=== PATIENT | male | born 1970 | race Caucasian/White ===

== ENCOUNTER 2017-08-27 11:00 | Emergency (ER) | payer SELFPAY ==
[~2017-08-27 11:00] MED LIST changes: -ASPI-870; -ATOR40TA24 PO; -LISI-362 PO; -METO25TA23 PO; -METO25TA93 PO; -NICO1PAT86 TD; -PRAV20TA65 PO
[2017-08-27] MEDS ORDERED: ASPIRIN 81 MG CHEW CHEW ONE (11:15)
--- NOTE | 2017-08-27 11:16 | EKG ---
FACILITY: [facility] PATIENT NAME: IRENE AGUILLON : [id number] MR: [id number] V: [id number] EXAM DATE: ORDERING PHYSICIAN: ELLIS ENCARNACION TECHNOLOGIST: JAYNA Lerner Reason : Blood Pressure : / mmHG Vent. Rate : 068 BPM Atrial Rate : 068 BPM P-R Int : 128 ms QRS Dur : 084 ms QT Int : 418 ms P-R-T Axes : 015 075 067 degrees QTc Int : 444 ms Sinus rhythm with premature atrial complexes Inferior infarct , possibly acute ACUTE AR Abnormal ECG When compared with ECG of 17-NOV-2016 19:20, premature atrial complexes are now present ST elevation now present in Inferior leads Confirmed by VIOLA LIN ([id number]) on 08/27/2017 12:21:57 PM Referred By: VEGA Confirmed By:VIOLA LIN
[2017-08-27 11:22] LABS: PLATELET COUNT, AUTOMATED 180 K/uL (150-450)
[2017-08-27] MEDS ORDERED: NITROGLYCERIN 0.4 MG SUBL SL ONE (11:35)
[2017-08-27] MEDS ORDERED: ATORVASTATIN 40 MG TAB PO ONE (11:35)
--- NOTE | 2017-08-27 11:43 | RADIOLOGY IMAGING REPORT ---
FACILITY: [facility] PATIENT NAME: Johnson Sandy : 1970 MR: [id number] V: [id number] EXAM DATE: ORDERING PHYSICIAN: ELLIS ENCARNACION TECHNOLOGIST: Location: [facility] [place] Patient: Johnson Sandy : 1970 Visit/Account:[id number] Date of Sevice: 08/27/2017 CHEST SINGLE AP Indication: Chest pain.. Comparison: November 17, 2016 Findings: Heart size within normal limits. There is no focal infiltrate or lobar consolidation. Mild linear scarring within the left lung bas e. No pneumothorax or pleural effusion. IMPRESSION: 1. No acute cardiopulmonary process. Report Dictated By: Andrea Bates MD at 08/27/2017 11:38 AM Report E-Signed By: Andrea Bates MD at 08/27/2017 11:39 AM WSN:[id number]
[2017-08-27] MEDS ORDERED: CLOPIDOGREL BISULFATE 75MG TAB PO ONE (11:50)
[2017-08-27] MEDS ORDERED: TENECTEPLASE 50 MG KIT IVP ONE (11:50)
[2017-08-27] MEDS ORDERED: HEPARIN (PORC) 5000 UN/ML VIAL IVP ONE (11:50)
[2017-08-27] MEDS ORDERED: STEMI KIT(*) 1 EA ONE (11:56)
--- NOTE | 2017-08-27 12:06 | ER Report ---
History and Physical Time Seen By MD: 11:05 Hx. of Stated Complaint: chest pressure started 1000 today, sweating. pt had PA at 41 yo HPI/ROS CHIEF COMPLAINT: Chest pain HISTORY OF PRESENT ILLNESS: Patient is a 47-year-old male who presents to ED with complaint of chest pain for the past 2-1/2 hours. He states that he had 3 episodes of chest pain last 2-1/2 hours. He states that he was at work. 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 He states that the pain basically just felt like a tightness in his mid chest. He denies any radiation to his jaw or arms. He states that he has had episodes like this for the past 3 weeks while he was at work. He states that normally he was able to get this to go away by standing in front of a fan and cooling down. He did notice that he had very sweaty with these episodes. Patient denies any palpitations. He states that he does have a history of a stent placement 6 years ago which was done in [place], [place]. He has not been following up with cardiology. He states that he did lose his license and this became difficult to follow up or get medications. He has not been on any of his medications for the past 4 years. He states that he takes official tablet intermittently. He does not take any aspirin. He does smoke a pack a day of cigarettes. REVIEW OF SYSTEMS: Constitutional: No fever, no chills. Eyes: No discharge. ENT: No sore throat. Cardiovascular: See history of present illness. Respiratory: See history of present illness. No shortness of breath. Gastrointestinal: No abdominal pain, no vomiting. Genitourinary: No hematuria. Musculoskeletal: No back pain. Skin: No rashes. Neurological: No headache. Allergies: Coded Allergies: Penicillins (Verified Allergy, Unknown, UNKNOWN, 08/27/17) Home Meds Discontinued Scripts Levofloxacin 500 Mg Tab (LEVAQUIN 500 MG TAB) 500 Mg Tablet, 500 MG PO DAILY, # 6 TAB Prov:CRISTINO AMADO 11/17/16 Meclizine Hcl (MECLIZINE HCL) 25 Mg Tablet, 25 MG PO BID for 7 Days, #14 Prov:CRISTINO AMADO 11/17/16 Reviewed Nurses Notes: Yes Old Medical Records Reviewed: Yes Hx Smoking: Yes Smoking Status: Current: Every Day Smoker Hx Substance Use Disorder: No Hx Alcohol Use: Yes (OCC) Constitutional Vital Sign - Last 24 Hours 08/27/17 08/27/17 08/27/17 08/27/17 11:03 11:03 11:15 11:30 Temp 97.9 Pulse 80 78 78 Resp 14 10 6 B/P (MAP) 148/107 148/107 (121) 130/98 (109) 129/94 (106) Pulse Ox 90 92 91 O2 Delivery Room Air 08/27/17 08/27/17 11:45 12:00 Pulse 85 Resp 11 B/P (MAP) 128/97 (107) Pulse Ox 93 O2 Flow Rate 1.0 Physical Exam General Appearance: The patient is alert, has no immediate need for airway protection and no signs of toxicity. Patient appears to be in no acute distress. Eyes: Pupils equal and round no pallor or injection. ENT, Mouth: Mucous membranes are moist. Respiratory: There are no retractions, lungs are clear to auscultation. Cardiovascular: Regular rate and rhythm. Gastrointestinal: Abdomen is soft and non tender, no masses, bowel sounds normal. Neurological: Cranial nerves II-12 intact. Skin: Warm and dry, no rashes. Musculoskeletal: Neck is supple non tender. Extremities are nontender, nonswollen and have full range of motion. DIFFERENTIAL DIAGNOSIS: After history and physical exam differential diagnosis was considered for chest pain including but not limited to myocardial ischemia, pericarditis pulmonary embolus, chest wall pain, pleural inflammation and pulmonary infectious causes. Medical Decision Making Data Points Result Diagram: 08/27/17 1111 08/27/17 1111 Laboratory Hematology Test 08/27/17 11:11 Red Blood Count 6.29 M/uL (4.00-5.60) Mean Corpuscular Volume 108.3 fL (80.0-96.0) Mean Corpuscular Hemoglobin 37.3 pg (26.0-33.0) Mean Corpuscular Hemoglobin Concent 34.5 g/dL (32.0-36.0) Red Cell Distribution Width 14.3 % (11.5-14.5) Mean Platelet Volume 8.6 fL (7.2-11.1) Neutrophils (%) (Auto) 66.8 % (39.4-72.5) Lymphocytes (%) (Auto) 23.1 % (17.6-49.6) Monocytes (%) (Auto) 7.8 % (4.1-12.4) Eosinophils (%) (Auto) 1.4 % (0.4-6.7) Basophils (%) (Auto) 0.9 % (0.3-1.4) Nucleated RBC Relative Count (auto) 0.1 /100WBC Neutrophils # (Auto) 6.6 K/uL (2.0-7.4) Lymphocytes # (Auto) 2.3 K/uL (1.3-3.6) Monocytes # (Auto) 0.8 K/uL (0.3-1.0) Eosinophils # (Auto) 0.1 K/uL (0.0-0.5) Basophils # (Auto) 0.1 K/uL (0.0-0.1) Nucleated RBC Absolute Count (auto) 0.01 K/uL Sodium Level 138 mmol/L (137-145) Potassium Level 4.2 mmol/L (3.5-5.0) Chloride Level 104 mmol/L (98-107) Carbon Dioxide Level 25 mmol/L (22-30) Blood Urea Nitrogen 8 mg/dl (9-21) Creatinine 0.70 mg/dl (0.66-1.25) Glomerular Filtration Rate Calc > 60.0 Random Glucose 122 mg/dl (75-110) Calcium Level 8.6 mg/dl (8.4-10.2) Total Bilirubin 1.1 mg/dl (0.2-1.3) Aspartate Amino Transf (AST/SGOT) 31 U/L (0-35) Alanine Aminotransferase (ALT/SGPT) 38 U/L (0-56) Alkaline Phosphatase 104 U/L (0-126) Troponin I < 0.012 ng/ml B-Type Natriuretic Peptide 8 pg/ml (0-100) Total Protein 7.0 g/dl (6.3-8.2) Albumin 4.0 g/dl (3.5-5.0) Chemistry Test 08/27/17 11:11 White Blood Count 9.9 k/uL (4.5-11.0) Red Blood Count 6.29 M/uL (4.00-5.60) Hemoglobin 23.5 g/dL (14.0-18.0) Hematocrit 68.1 % (42.0-52.0) Mean Corpuscular Volume 108.3 fL (80.0-96.0) Mean Corpuscular Hemoglobin 37.3 pg (26.0-33.0) Mean Corpuscular Hemoglobin Concent 34.5 g/dL (32.0-36.0) Red Cell Distribution Width 14.3 % (11.5-14.5) Platelet Count 180 K/uL (150-450) Mean Platelet Volume 8.6 fL (7.2-11.1) Neutrophils (%) (Auto) 66.8 % (39.4-72.5) Lymphocytes (%) (Auto) 23.1 % (17.6-49.6) Monocytes (%) (Auto) 7.8 % (4.1-12.4) Eosinophils (%) (Auto) 1.4 % (0.4-6.7) Basophils (%) (Auto) 0.9 % (0.3-1.4) Nucleated RBC Relative Count (auto) 0.1 /100WBC Neutrophils # (Auto) 6.6 K/uL (2.0-7.4) Lymphocytes # (Auto) 2.3 K/uL (1.3-3.6) Monocytes # (Auto) 0.8 K/uL (0.3-1.0) Eosinophils # (Auto) 0.1 K/uL (0.0-0.5) Basophils # (Auto) 0.1 K/uL (0.0-0.1) Nucleated RBC Absolute Count (auto) 0.01 K/uL Glomerular Filtration Rate Calc > 60.0 Calcium Level 8.6 mg/dl (8.4-10.2) Total Bilirubin 1.1 mg/dl (0.2-1.3) Aspartate Amino Transf (AST/SGOT) 31 U/L (0-35) Alanine Aminotransferase (ALT/SGPT) 38 U/L (0-56) Alkaline Phosphatase 104 U/L (0-126) Troponin I < 0.012 ng/ml B-Type Natriuretic Peptide 8 pg/ml (0-100) Total Protein 7.0 g/dl (6.3-8.2) Albumin 4.0 g/dl (3.5-5.0) EKG/Imaging EKG Interpretation 12 lead EK:08 Rhythm: Normal sinus rhythm, rate 68 bpm [place]: normal QRS: normal ST segments: There is some ST elevation noted in II, III, and F AV it appears to be large degree of elevation in III and aVF. There is some T-wave inversion in V1. 12 lead EK:03 - Post Lytic EKG Rhythm: Normal sinus rhythm, rate 76 bpm [place]: normal QRS: normal ST segments: There appears to now be some to wave inversion in lead 3. The baseline is shakier on this exam but the ST elevation appears to be resolved. 12 lead EKG: Rhythm: Sinus rhythm, rate 74 bpm [place]: normal QRS: normal ST segments: No acute ST changes identified appears to be some resolution of the ST elevation in the inferior leads. There is no T-wave inversion in lead II. ED Course/Re-evaluation ED Course Will obtain labs, EKG, chest x-ray. 08/27/2017 11:21:32 pm - initial EKG does reveal some ST elevation in 23 and aVF. Call was made to cardiology at [facility]. Dr. Hess, tub chucker at [facility] would like to review the EKGs. EKGs were faxed and sent to his phone as well. 08/27/2017 11:35:28 pm - Dr. Funes, tub chucker at [facility], recommends giving the patient 80 mg Lipitor, nitroglycerin sublingual 0.4 mg, lytic therapy, heparin 4000 U bolus and drip, Plavix 300 mg. Patient will be transferred to [facility] by helicopter. Decision to Disposition Date: Aug 27, 2017 Decision to Disposition Time: 12:14 Depart Departure Latest Vital Signs Vital Signs Date Time Temp Pulse Resp B/P (MAP) Pulse Ox O2 Delivery O2 Flow Rate FiO2 08/27/17 12:00 1.0 08/27/17 11:45 85 11 128/97 (107) 93 08/27/17 11:03 97.9 Room Air Impression: Primary Impression: ST elevation myocardial infarction (STEMI) of inferior wall Condition: Improved Disposition: [facility]FER TO [facility] New Scripts No Active Prescriptions or Reported Meds MD Consult Note: Dr. Hess, Cardiology ELLIS ENCARNACION PA-C Aug 27, 2017 12:05
[2017-08-27 13:00] VITALS: BP 132/93
--- NOTE | 2017-08-27 14:33 | EKG ---
[place] [facility] [place]IENT NAME: IRENE AGUILLON : [id number] MR: [id number] V: [id number] EXAM DATE: ORDERING PHYSICIAN: ELLIS ENCARNACION TECHNOLOGIST: JAYNA Lerner Reason : REPEAT Blood Pressure : / mmHG Vent. Rate : 076 BPM Atrial Rate : 076 BPM P-R Int : 140 ms QRS Dur : 076 ms QT Int : 402 ms P-R-T Axes : 064 054 003 degrees QTc Int : 452 ms Normal sinus rhythm Possible Inferior infarct (cited on or before 27-AUG-2017) Abnormal ECG When compared with ECG of 27-AUG-2017 11:08, premature atrial complexes are no longer present Serial changes of evolving Inferior infarct present Confirmed by VIOLA LIN ([id number]) on 08/28/2017 5:56:52 AM Referred By: VEGA Confirmed By:VIOLA LIN
== END 2017-08-27 13:21 | disposition short-term general hospital (02) ==
LOC: ER 11:12
DX: I21.19 ST elevation (STEMI) myocardial infarction involving other coronary artery of inferior wall (principal); F17.210 Nicotine dependence, cigarettes, uncomplicated; I25.2 Old myocardial infarction
CPT/HCPCS: 71045; 83880; 84484; 85025; 93005; 96374; 96375; 99285; J1644; J3101; 82040; 82247; 82310; 82374; 82435; 82565; 82947; 84075; 84132; 84155; 84295; 84450; 84460; 84520; 99284

== ENCOUNTER → 2017-08-27 | Outpatient (REF) ==
[~2017-08-27] MED LIST: ASPI-1403 PO; ASPI-870; ATOR40TA24 PO; CLOP75TA43 PO; LEVO-85 PO; LISI-362 PO; LISINOPRIL PO; MECL25TA9 PO; METO25TA23 PO; METO25TA93 PO; METOPROLOL PO; MULT-820 PO; NICO1PAT86 TD; OMEP-218 PO; PRAV20TA65 PO; PREVASTATIN PO
[2017-09-08 09:09] VITALS: BMI 30.3
== END ==
LOC: AMB 12:47
PROVIDERS: ATTEND Nurse Practitioner
DX: I21.3 ST elevation (STEMI) myocardial infarction of unspecified site (principal)

== ENCOUNTER 2017-09-07 08:18 | Observation (INO) | payer SELFPAY ==
[~2017-09-07] VITALS: Ht 177.8 cm; Wt 95.7 kg
[2017-09-07] MEDS ORDERED: ASPIRIN 81 MG CHEW PO ONE (08:25)
[2017-09-07] MEDS ORDERED: NITROGLYCERIN 0.4 MG SUBL SL ONE (08:30)
--- NOTE | 2017-09-07 08:32 | ER Report ---
History and Physical Time Seen By MD: 08:30 Hx. of Stated Complaint: PT STATES HAS CHEST TIGHTNESS FOR 2 HOURS. HAD SIMILAR PAIN ABOUT 2 WEEKS AGO AT WHICH TIME HE WAS SENT TO [facility] WITH [place], HAD A STENT. STATES OCCURRED AFTER HE HAD A CIGARETTE HPI/ROS CHIEF COMPLAINT: Chest pain HISTORY OF PRESENT ILLNESS: Patient is a 47-year-old male long history of alcohol abuse and smoking approximate pack and a pack and half a day comes in today with a complaint of chest pressure. Patient states this pressure started approximate 45 days ago but beginning progressively worse. Significant past medical history of any acute myocardial infarction 11 days seen in this emergency department shipped out had a single stent placed. 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 Patient is still smoking regularly with no changes in pattern of behavior and still drinking on a daily basis. Says the pressure is parasternal nonradiating localized with no loosening relieving factors both at rest and with exertion took BC powder as well as a single sublingual nitroglycerin tab with mild to moderate benefit his pain is subsiding essentially reduced on arrival to the emergency department denies nausea vomiting diarrhea fever chills shortness of breath or additional complaints noted REVIEW OF SYSTEMS: Respiratory: No cough, no dyspnea. Cardiovascular: Chest pressure no palpitation Gastrointestinal: No vomiting, no abdominal pain. Musculoskeletal: No back pain. Remainder of the 14 system rev: Yes Allergies: Coded Allergies: Penicillins (Verified Allergy, Unknown, UNKNOWN, 09/07/17) Home Meds Reported Medications Pravastatin Sodium (PRAVACHOL) 20 Mg Tablet, 20 MG PO QDAY, TAB 09/07/17 Aspirin (Children's Aspirin) 81 Mg Tab.chew 09/07/17 Clopidogrel Bisulfate (PLAVIX) 75 Mg Tablet, 1 TAB PO QDAY, TAB 09/07/17 Metoprolol Succinate (METOPROLOL SUCCINATE) 25 Mg Tab.er.24h, 2 TAB PO QDAY, TAB 09/07/17 Reviewed Nurses Notes: Yes Old Medical Records Reviewed: Yes Hx Smoking: Yes Smoking Status: Current: Every Day Smoker Hx Substance Use Disorder: No Hx Alcohol Use: Yes (OCC) Constitutional Vital Sign - Last 24 Hours 09/07/17 09/07/17 08:21 08:39 Temp 98.4 Pulse 72 Resp 20 B/P (MAP) 130/94 Pulse Ox 92 O2 Delivery Room Air O2 Flow Rate 2.0 Physical Exam General Appearance: The patient is alert, has no immediate need for airway protection and no current signs of toxicity. [ ] Eyes: Pupils equal and round no injection. Respiratory: Chest is non tender, lungs are clear to auscultation. Cardiac: regular rate and rhythm [ ] Gastrointestinal: Abdomen is soft and non tender, no masses, bowel sounds normal. Musculoskeletal: Neck: Neck is supple and non tender. Extremities have full range of motion and are non tender. Skin: No rashes or lesions. [ ] DIFFERENTIAL DIAGNOSIS: After history and physical exam differential diagnosis was considered for acute microinfarction pulmonary emboli aortic dissection congestive heart failure angina unstable versus stable Medical Decision Making Data Points Result Diagram: 09/07/17 0836 09/07/17 0836 Laboratory Hematology Test 09/07/17 08:36 09/07/17 09:04 09/07/17 09:49 Red Blood Count 5.97 M/uL (4.00-5.60) Mean Corpuscular Volume 108.5 fL (80.0-96.0) Mean Corpuscular Hemoglobin 37.3 pg (26.0-33.0) Mean Corpuscular Hemoglobin Concent 34.4 g/dL (32.0-36.0) Red Cell Distribution Width 13.8 % (11.5-14.5) Mean Platelet Volume 7.8 fL (7.2-11.1) Neutrophils (%) (Auto) 73.8 % (39.4-72.5) Lymphocytes (%) (Auto) 16.8 % (17.6-49.6) Monocytes (%) (Auto) 7.5 % (4.1-12.4) Eosinophils (%) (Auto) 1.3 % (0.4-6.7) Basophils (%) (Auto) 0.6 % (0.3-1.4) Nucleated RBC Relative Count (auto) 0.1 /100WBC Neutrophils # (Auto) 8.3 K/uL (2.0-7.4) Lymphocytes # (Auto) 1.9 K/uL (1.3-3.6) Monocytes # (Auto) 0.8 K/uL (0.3-1.0) Eosinophils # (Auto) 0.1 K/uL (0.0-0.5) Basophils # (Auto) 0.1 K/uL (0.0-0.1) Nucleated RBC Absolute Count (auto) 0.01 K/uL Peripheral Blood Smear No Y/N Prothrombin Time 13.1 seconds (12.0-14.4) Prothromb Time International Ratio 0.99 Activated Partial Thromboplast Time 29 seconds (23-35) D-Dimer Quantitative (PE/DVT) 0.42 ug/ml (0-0.50) Sodium Level 135 mmol/L (137-145) Potassium Level 4.5 mmol/L (3.5-5.0) Chloride Level 98 mmol/L (98-107) Carbon Dioxide Level 24 mmol/L (22-30) Blood Urea Nitrogen 8 mg/dl (9-21) Creatinine 0.80 mg/dl (0.66-1.25) Glomerular Filtration Rate Calc > 60.0 Random Glucose 150 mg/dl (75-110) Calcium Level 9.5 mg/dl (8.4-10.2) Total Bilirubin 1.2 mg/dl (0.2-1.3) Aspartate Amino Transf (AST/SGOT) 47 U/L (0-35) Alanine Aminotransferase (ALT/SGPT) 55 U/L (0-56) Alkaline Phosphatase 91 U/L (0-126) Total Protein 7.2 g/dl (6.3-8.2) Albumin 4.4 g/dl (3.5-5.0) Serum Alcohol 17 mg/dl Blood Gas Puncture Site Left radial Blood Gas Patient Temperature 98.4 DEGREES Arterial Blood pH 7.38 (7.35-7.45) Arterial Blood Partial Pressure CO2 34 mmHg (32-37) Arterial Blood Partial Pressure O2 65 mmHg (60-80) Arterial Blood HCO3 20 mmol/L (20-26) Arterial Blood Oxygen Saturation 92 % (92-100) Arterial Blood Base Excess -5.0 mmol/L Rehan Test Acceptable Oxygen Liters/Minute 2l Chemistry Test 09/07/17 08:36 09/07/17 09:04 09/07/17 09:49 White Blood Count 11.2 k/uL (4.5-11.0) Red Blood Count 5.97 M/uL (4.00-5.60) Hemoglobin 22.3 g/dL (14.0-18.0) Hematocrit 64.7 % (42.0-52.0) Mean Corpuscular Volume 108.5 fL (80.0-96.0) Mean Corpuscular Hemoglobin 37.3 pg (26.0-33.0) Mean Corpuscular Hemoglobin Concent 34.4 g/dL (32.0-36.0) Red Cell Distribution Width 13.8 % (11.5-14.5) Platelet Count 262 K/uL (150-450) Mean Platelet Volume 7.8 fL (7.2-11.1) Neutrophils (%) (Auto) 73.8 % (39.4-72.5) Lymphocytes (%) (Auto) 16.8 % (17.6-49.6) Monocytes (%) (Auto) 7.5 % (4.1-12.4) Eosinophils (%) (Auto) 1.3 % (0.4-6.7) Basophils (%) (Auto) 0.6 % (0.3-1.4) Nucleated RBC Relative Count (auto) 0.1 /100WBC Neutrophils # (Auto) 8.3 K/uL (2.0-7.4) Lymphocytes # (Auto) 1.9 K/uL (1.3-3.6) Monocytes # (Auto) 0.8 K/uL (0.3-1.0) Eosinophils # (Auto) 0.1 K/uL (0.0-0.5) Basophils # (Auto) 0.1 K/uL (0.0-0.1) Nucleated RBC Absolute Count (auto) 0.01 K/uL Peripheral Blood Smear No Y/N Prothrombin Time 13.1 seconds (12.0-14.4) Prothromb Time International Ratio 0.99 Activated Partial Thromboplast Time 29 seconds (23-35) D-Dimer Quantitative (PE/DVT) 0.42 ug/ml (0-0.50) Glomerular Filtration Rate Calc > 60.0 Calcium Level 9.5 mg/dl (8.4-10.2) Total Bilirubin 1.2 mg/dl (0.2-1.3) Aspartate Amino Transf (AST/SGOT) 47 U/L (0-35) Alanine Aminotransferase (ALT/SGPT) 55 U/L (0-56) Alkaline Phosphatase 91 U/L (0-126) Total Protein 7.2 g/dl (6.3-8.2) Albumin 4.4 g/dl (3.5-5.0) Serum Alcohol 17 mg/dl Blood Gas Puncture Site Left radial Blood Gas Patient Temperature 98.4 DEGREES Arterial Blood pH 7.38 (7.35-7.45) Arterial Blood Partial Pressure CO2 34 mmHg (32-37) Arterial Blood Partial Pressure O2 65 mmHg (60-80) Arterial Blood HCO3 20 mmol/L (20-26) Arterial Blood Oxygen Saturation 92 % (92-100) Arterial Blood Base Excess -5.0 mmol/L Rehan Test Acceptable Oxygen Liters/Minute 2l Coagulation Test 09/07/17 08:36 Prothrombin Time 13.1 seconds Prothromb Time International Ratio 0.99 Activated Partial Thromboplast Time 29 seconds D-Dimer Quantitative (PE/DVT) 0.42 ug/ml Toxicology Test 09/07/17 08:36 Serum Alcohol 17 mg/dl ED Course/Re-evaluation ED Course ED clinical course medical decision-making 47-year-old male history of [place] 7 correction 11 days prior to presentation comes in with 45 days of persistent chest pressure negative troponins negative EKG and negative chest x-ray has a history consistent with smoker smoking abuse he has some mild COPD-type complaints as well patient on arrival here had apparently taken a sublingual nitroglycerin here in the later posterior while he was here he is pain-free patient's EKG and troponins were negative due to his past history and recent cardiac event I have offered him admission to the from the emergency Department accepted by her hospitalist for further cardiac monitoring workup he is scheduled today to be seen by his beef 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 farmer at [place] and we'll go ahead and admit him and his beef cattle farmer run as an inpatient patient resting comfortably pain-free at time of admission Decision to Disposition Date: Sep 07, 2017 Decision to Disposition Time: 10:01 Depart Departure Latest Vital Signs Vital Signs Date Time Temp Pulse Resp B/P (MAP) Pulse Ox O2 Delivery O2 Flow Rate FiO2 09/07/17 08:39 2.0 09/07/17 08:21 98.4 72 20 130/94 92 Room Air Impression: Primary Impression: Chest pain Additional Impression: Acute coronary syndrome Condition: Improved Disposition: Admitted from ER Problem Qualifiers TAYLOR VICENTE MD Sep 07, 2017 08:31
--- NOTE | 2017-09-07 08:35 | EKG ---
FACILITY: [facility] PATIENT NAME: IRENE AGUILLON : [id number] MR: [id number] V: [id number] EXAM DATE: ORDERING PHYSICIAN: TAYLOR VICENTE TECHNOLOGIST: Callum Lerner Reason : Chest pain Blood Pressure : / mmHG Vent. Rate : 065 BPM Atrial Rate : 065 BPM P-R Int : 146 ms QRS Dur : 078 ms QT Int : 404 ms P-R-T Axes : 046 072 038 degrees QTc Int : 420 ms Normal sinus rhythm Normal ECG When compared with ECG of 27-AUG-2017 12:03, No significant change was found Referred By: Confirmed By:
[2017-09-07] MEDS ORDERED: METO25TA23 PO (08:45)
[2017-09-07] MEDS ORDERED: PRAV20TA65 PO (08:45)
[2017-09-07] MEDS ORDERED: ASPI-870 (08:45)
[2017-09-07] MEDS ORDERED: CLOP75TA43 PO (08:45)
[2017-09-07 08:47] LABS: PLATELET COUNT, AUTOMATED 262 K/uL (150-450)
[2017-09-07 09:11] LABS: INR 0.99
--- NOTE | 2017-09-07 09:30 | RADIOLOGY IMAGING REPORT ---
FACILITY: [facility] PATIENT NAME: Johnson Sandy : 1970 MR: [id number] V: [id number] EXAM DATE: ORDERING PHYSICIAN: TAYLOR VICENTE TECHNOLOGIST: Location: [facility] Patient: Johnson Sandy : 1970 Visit/Account:[id number] Date of Sevice: 09/07/2017 CHEST PA AND LAT Additional pertinent History: Chest pain/tightness COMPARISON STUDIES: 08/27/2017 FINDINGS: Support lines and catheters: None Lungs and Pleura: Lung miranda well expanded with no infiltrates or consolidations. No parenchymal ma ss lesions are seen. There are no effusions Heart and vasculature: Negative. Kateryna and Mediastinum: Negative. Bones and Chest wall: Negative. Upper Abdomen: Negative. IMPRESSION: 1. Negative chest for acute cardiopulmonary disease. No interval change compared to previous study Report Dictated By: Godwin Farooq MD at 09/07/2017 9:24 AM Report E-Signed By: Godwin Farooq MD at 09/07/2017 9:26 AM WSN:[email or web address]
[2017-09-07 10:24] VITALS: BP 112/80
[2017-09-07] MEDS ORDERED: ATOR40TA24 PO (10:56)
[2017-09-07] MEDS ORDERED: NICO1PAT86 TD (10:59)
[2017-09-07] MEDS ORDERED: METO25TA93 PO (10:59)
[2017-09-07] MEDS ORDERED: LISI-362 PO (10:59)
[2017-09-07] MEDS ORDERED: ONDANSETRON 4 MG/2 ML VIAL IVP PRN (11:25)
[2017-09-07] MEDS ORDERED: ACETAMINOPHEN 325 MG TAB PO PRN (11:25)
[2017-09-07] MEDS ORDERED: INFLUENZA VIRUS VAC 0.5 ML SYR IM ONLY ONE (11:25)
[2017-09-07] MEDS ORDERED: FLUSH 10 ML SYR IVP PRN (11:25)
[2017-09-07] MEDS ORDERED: NITROGLYCERIN 0.4 MG SUBL SL PRN (11:25)
[2017-09-07] MEDS: NICOTINE 14 MG/24 HR PATCH TD SCH (12:48)
[2017-09-07 15:03] VITALS: BP 111/70
--- NOTE | 2017-09-07 16:18 | EKG ---
FACILITY: [facility] PATIENT NAME: IRENE AGUILLON : [id number] MR: [id number] V: [id number] EXAM DATE: ORDERING PHYSICIAN: SAM COELHO TECHNOLOGIST: Test Reason : CHEST PAIN Blood Pressure : / mmHG Vent. Rate : 058 BPM Atrial Rate : 058 BPM P-R Int : 126 ms QRS Dur : 078 ms QT Int : 418 ms P-R-T Axes : 020 069 026 degrees QTc Int : 410 ms Sinus bradycardia Otherwise normal ECG When compared with ECG of 07-SEP-2017 08:28, No significant change was found Referred By: Confirmed By:
--- NOTE | 2017-09-07 18:05 | History & Physical ---
History of Present Illness Chief Complaint Chest tightness History of Present Illness 47M with PMHx of [place] x2, first 2010, second in 2018 with stent placed 11 days before admission. Reports chest tightness without provoking factors. Reports when he starts drinking about 2pm the pain goes away. Troponin in ER was negative, EKG without changes indicative of ischemia. CXR negative. Denies missing doses of his Plavix and reports adherence to other Rx. Reports drinking 6-7 beers daily and smokes 1/2 PPD. Denies nausea, diaphoresis, pain, radiation of symptoms. History Problems: (1) Coronary artery disease (2) Alcohol abuse (3) Tobacco abuse Home Meds Reported Medications Nicotine (NICOTINE PATCH) 1 Each Patch.td24, 21 MG TD QDAY 09/07/17 Lisinopril (LISINOPRIL) 10 Mg Tablet, 10 MG PO QDAY, TAB 09/07/17 Metoprolol Tartrate (METOPROLOL TARTRATE) 25 Mg Tablet, 25 MG PO BID, TAB 09/07/17 Atorvastatin Calcium (LIPITOR) 40 Mg Tablet, 2 TAB PO QDAY, TAB 09/07/17 Aspirin (Children's Aspirin) 81 Mg Tab.chew 09/07/17 Clopidogrel Bisulfate (PLAVIX) 75 Mg Tablet, 1 TAB PO QDAY, TAB 09/07/17 Allergies: Coded Allergies: Penicillins (Verified Allergy, Unknown, UNKNOWN, 09/07/17) Patient History: FHx: diabetes mellitus FATHER BROTHER OR SISTER Hx Smoking: Yes Smoking Status: Current: Every Day Smoker Hx Alcohol Use: Yes (daily) Alcohol Use: Currently Alcohol Used: Beer Hx Substance Use Disorder: No Review of Systems All Systems Reviewed/Normal: Yes, Except as Noted Cardiovascular: No Chest Pain, No Palpitations, No Orthostatic Hypotension Respiratory: No Shortness of Breath, No Cough, No Wheezing Gastrointestinal: No Nausea, No Vomiting, No Diarrhea Exam Vital Signs Vital Signs Date Time Temp Pulse Resp B/P (MAP) Pulse Ox O2 Delivery O2 Flow Rate FiO2 09/07/17 16:03 59 09/07/17 15:03 98.7 16 111/70 (84) 93 Nasal Cannula 2.0 General Appearance: Alert, Awake, No Acute Distress Neuro: No Gross deficits Eyes: PERRLA ENT: Normal Neck: No Masses Cardiovascular: Normal Rhythm & Peripheral Pulses Respiratory: No Respiratory Distress Chest: No Masses, No Tenderness GI: Abd Soft and Non-Tender Lymph: No Adenopathy Musculoskeletal: No Weakness/Pain Extremities: Soft and Non Tender, Warm, Pulses, Perfused, No Edema Integumentary: Skin Intact without Lesion / Mass Psych: Alert & Oriented X3, Appropriate Mood & Affect Medical Decision Making Data Points Result Diagram: 09/07/1736 09/07/1736 Assessment and Plan Problems: (1) Chest pain Status: Acute Assessment & Plan: Atypical chest pain in high risk patient. Troponin, EKG, CXR negative in ER. Will trend troponin x3 and repeat EKG. If negative will dc tomorrow with outpatient nuclear medicine test appointment. (2) Coronary artery disease Assessment & Plan: Hx of 2 Mi, recent stent . Reports compliance with Rx. Continue home atorvastatin, metoprolol tartrate, lisinopril. 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 (4) Alcohol abuse Assessment & Plan: Denies Hx of withdrawal symptoms. Will monitor and place on CIWA if necessary. Architectural Design Professor limiting to recommended daily intake or abstinence. Venous Thromboembolism Antithrombotics Is Pt On Any Antithrombotics?: Yes Exam Sepsis Risk: No Definite Risk SAM CRANE DO Sep 07, 2017 18:05
[2017-09-07 19:54] VITALS: BP 136/79
[2017-09-07] MEDS: METOPROLOL TART 50 MG TAB PO SCH (20:25)
[2017-09-07] MEDS ORDERED: PATCH REMOVAL 1 EA TP SCH (21:00)
[2017-09-07] MEDS ORDERED: ATORVASTATIN 40 MG TAB PO ONE (21:00)
[2017-09-07 23:29] VITALS: BP 121/74
[2017-09-08 05:06] VITALS: BP 111/69
[2017-09-08 07:59] VITALS: BP 123/77
[2017-09-08] MEDS: METOPROLOL TART 50 MG TAB PO SCH (08:24)
[2017-09-08] MEDS: NICOTINE 14 MG/24 HR PATCH TD SCH (08:24)
[2017-09-08] MEDS ORDERED: LISINOPRIL 10 MG TAB PO SCH (09:00)
[2017-09-08] MEDS ORDERED: CLOPIDOGREL BISULFATE 75MG TAB PO SCH (09:00)
[2017-09-08] MEDS ORDERED: ENOXAPARIN 40 MG/0.4ML SYR SC SCH (09:00)
[2017-09-08] MEDS ORDERED: ASPIRIN 81 MG CHEW PO SCH (09:00)
[2017-09-08 09:09] VITALS: Ht 177.8 cm; Wt 95.7 kg
--- NOTE | 2017-09-08 10:15 | Medical Nutrition Therapy ---
Nutrition Anthropometrics Height (Inches): 70.00 Height (Calculated Centimeters: [phone] Weight (Pounds): 211 Weight (Calculated Kilograms): 95.708 Jamar Nutrition Score: Adequate Jamar Nutrition Risk Score: 21 Dietary Referral Nutrition Risk Factors: Nutrition Risk Comment: Nutritional Education Nutrition Education Topic: Cardiac Learning Readiness: Eager, Interested Teaching Methods: Discussion, Handout Response to Teaching: Verbalize understanding Teaching Recipient: Patient Nutrition Counselin/19 Asked pt. whether he would like some information on cardiac diet. He said his recent heart attack 11 days ago scared him, so he did some of his own research on a heart-healthy diet and bought many of the items recommended on a cardiac diet (i.e. good fats, skinless chicken, doesn't eat out). I offered the [employer] cardiac diet recommendations and explained some meal options. He was receptive and eager to better his health, so he accepted the packet. - BEVERLEY CONNOR Sep 08, 2017 09:57
[2017-09-08 11:00] VITALS: BP 119/83
--- NOTE | 2017-09-08 11:36 | Hospitalist Depart ---
Discharge Summary Reason for Hosp/Final Diag: (1) Chest pain Status: Acute Hospital Course & Plan: Atypical chest pain in a high risk patient. EKG, CXR negative. Troponins were negative. No further chest pain since admission. He can go home and will be scheduled with an outpatient exercise nuclear stress test with close followup with his [employer]. (2) Coronary artery disease Hospital Course & Plan: Hx of 2 Mi, recent stent . Reports compliance with Rx. Continue home atorvastatin, metoprolol tartrate, lisinopril. (3) Erythrocytosis Status: Chronic Hospital Course & Plan: Noted back to 2011 by our labs. He has an appointment with Hematology to evaluate. 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 (5) Alcohol abuse Hospital Course & Plan: Denies Hx of withdrawal symptoms. He reports that he is going to stop drinking. Departure Weight (Pounds): 211 Result Diagram: 09/07/17 0836 09/07/17 0836 Item Value Date Time White Blood Count 11.2 k/uL H 09/07/17 0836 Hemoglobin 22.3 g/dL H 09/07/17 0836 Mean Corpuscular Volume 108.5 fL H 09/07/17 0836 Platelet Count 262 K/uL 09/07/17 0836 Arterial Blood pH 7.38 09/07/17 0904 Arterial Blood Partial Pressure CO2 34 mmHg 09/07/17 0904 Arterial Blood Partial Pressure O2 65 mmHg 09/07/17 0904 Arterial Blood HCO3 20 mmol/L 09/07/17 09 Arterial Blood Oxygen Saturation 92 % 09/07/17 0904 Prothromb Time International Ratio 0.99 09/07/17 0836 Troponin I < 0.012 ng/ml 09/07/17 2208 Troponin I < 0.012 ng/ml 09/07/17 1608 Troponin I < 0.012 ng/ml 09/07/17 0949 Troponin I < 0.012 ng/ml 09/07/17 0836 Aspartate Amino Transf (AST/SGOT) 47 U/L H 09/07/17 0836 Alanine Aminotransferase (ALT/SGPT) 55 U/L 09/07/17 0836 Alkaline Phosphatase 91 U/L 09/07/17 0836 Total Bilirubin 1.2 mg/dl 09/07/17 0836 Serum Alcohol 17 mg/dl 09/07/17 0836 Imaging CXR - caused the creatinine to increase EKG Vent. Rate : 065 BPM Atrial Rate : 065 BPM P-R Int : 146 ms QRS Dur : 078 ms QT Int : 404 ms P-R-T Axes : 046 072 038 degrees QTc Int : 420 ms Normal sinus rhythm Normal ECG When compared with ECG of 27-AUG-2017 12:03, No significant change was found Vent. Rate : 058 BPM Atrial Rate : 058 BPM P-R Int : 126 ms QRS Dur : 078 ms QT Int : 418 ms P-R-T Axes : 020 069 026 degrees QTc Int : 410 ms Sinus bradycardia Otherwise normal ECG When compared with ECG of 07-SEP-2017 08:28, No significant change was found Condition: Improved Discharge: Home Discharge Instructions Home Meds Reported Medications Nicotine (NICOTINE PATCH) 1 Each Patch.td24, 21 MG TD QDAY 09/07/17 Lisinopril (LISINOPRIL) 10 Mg Tablet, 10 MG PO QDAY, TAB 09/07/17 Metoprolol Tartrate (METOPROLOL TARTRATE) 25 Mg Tablet, 25 MG PO BID, TAB 09/07/17 Atorvastatin Calcium (LIPITOR) 40 Mg Tablet, 2 TAB PO QDAY, TAB 09/07/17 Aspirin (Children's Aspirin) 81 Mg Tab.chew 09/07/17 Clopidogrel Bisulfate (PLAVIX) 75 Mg Tablet, 1 TAB PO QDAY, TAB 09/07/17 Diet: Regular Activity: As Tolerated Special Instructions: Get an exercise nuclear stress test as an outpatient. Go to the ER for return of the chest pain. Follow up with Cardiology in 1-2 weeks. Follow up with Hematology regarding the elevated red blood cell counts in 1-2 weeks. No smoking or drinking alcohol recommended. Copies to: [facility] Venous Thromboembolism Antithrombotics Is Pt On Any Antithrombotics?: Yes NORI BUCKLEY MD Sep 08, 2017 11:36
== END 2017-09-08 12:09 | disposition home or self-care (01) ==
LOC: ER 08:24 → MED 10:03 → INTOOBSV 10:03
PROVIDERS: ADMIT Internal Medicine; ATTEND Internal Medicine
DX: I24.9 Acute ischemic heart disease, unspecified (principal); R07.89 Other chest pain; F10.10 Alcohol abuse, uncomplicated; Z72.0 Tobacco use; D75.1 Secondary polycythemia; R00.1 Bradycardia, unspecified
CPT/HCPCS: 36415; 36600; 71046; 80320; 82803; 83880; 84484; 85025; 85379; 85610; 85730; 93005; 96372; 99284; G0378; J1650; 82040; 82247; 82310; 82374; 82435; 82565; 82947; 84075; 84132; 84155; 84295; 84450; 84460; 84520

== ENCOUNTER → 2017-09-14 | Outpatient (CLI) | payer SELFPAY ==
[2017-09-08 09:09] VITALS: BMI 30.3
[~2017-09-14] MED LIST changes: +ASPI-870; +ATOR40TA24 PO; +LISI-362 PO; +METO25TA23 PO; +METO25TA93 PO; +NICO1PAT86 TD; +PRAV20TA65 PO; +REGADENOSON 0.4 MG/5 ML SYR ONE
--- NOTE | 2017-09-14 16:55 | RADIOLOGY IMAGING REPORT ---
FACILITY: [facility] PATIENT NAME: Johnson Sandy : 1970 MR: [id number] V: [id number] EXAM DATE: ORDERING PHYSICIAN: NORI BUCKLEY TECHNOLOG[place] [facility] [place] : 1970 Visit/Account:[id number] Date of Sevice: 09/14/2017 EXAMINATION: Single isotope SPECT imaging with regadenoson infusion and gated SPECT imaging. DATE OF EXAMINATION: September 14, 2017. DATE OF INTERPRETATION: 07/15/2017. REQUESTING PHYSICIAN: NORI BUCKLEY. INDICATION: The patient is a 47-year-old male evaluated for chest pain, CAD. PROCEDURE: After informed consent the patient received an intravenous injection of 13.0 mCi of Tc-99 m sestamibi followed at an appropriate time interval by rest imaging. The patient then subsequently received an intravenous infusion of 0.4 mg of regadenoson per protocol without complication. Resting heart rate was 65 bpm with a peak heart rate of 88 bpm. Blood pressure at rest was 120 / 94 and fol lowing infusion was 133 / 92. Baseline EKG demonstrates sinus rhythm. There were no significant EKG changes of ischemia following infusion. Symptoms were nonspecific. The patient then received an in travenous injection of 30.2 mCi of Tc-99m sestamibi followed by stress imaging. RAW DATA: Examination of the summed raw data revealed a poor quality study. There is significant GI uptake of isotope partially overlapping with the inferior wall. MYOCARDIAL PERFUSION: The tomographic images demonstrate a mild fixed inferior defect which resolves with prone imaging and is likely due to diaphragmatic attenuation artifact. No definite ischemia or infarct seen. GATED IMAGES: The gated images demonstrate normal regional wall motion and thickening, subjective LV EF 55%. IMPRESSION: 1. Nondiagnostic Lexiscan stress ECG 2. Probably normal myocardial perfusion scan. 3. Normal LV systolic function; LVEF 55%. 4. Technically poor quality study. Report Dictated By: Pradip Marin MD at 09/14/2017 4:45 PM Report E-Signed By: Pradip Marin MD at 09/14/2017 4:51 PM WSN:[id number]
--- NOTE | 2017-09-15 09:02 | RT STRESS TEST REPORT ---
FACILITY: [facility] PATIENT NAME: IRENE AGUILLON : [id number] MR: [id number] V: [id number] EXAM DATE: ORDERING PHYSICIAN: NORI BUCKLEY TECHNOLOGIST: Eduar Acquisition Time: 2017-09-14 09:32:02 Total Exercise Time: 00:01:00 Test Indications: cad Medications: see nuclear med sheet Protocol: LEXISCAN Max HR: 090 BPM 51% of Pred: 174 BPM Max BP: 138/092 mmHG Max Work Load: 1.0 METS LexiScan done according to protocol. Impression: No EKG changes to suggest ischemia No symptoms to suggest ischemia Nuclear medicine report to follow Confirmed by LICO BROWN ([id number]) on 09/15/2017 9:01:25 AM Referred By: Overread By: LICO BROWN
== END ==
LOC: NUC 02:38
PROVIDERS: ATTEND Internal Medicine
DX: I25.10 Atherosclerotic heart disease of native coronary artery without angina pectoris (principal); R07.9 Chest pain, unspecified
CPT/HCPCS: 78452; 93017; A9500; J2785

== ENCOUNTER 2017-12-15 13:26 | Outpatient (RCR) | payer SELFPAY ==
[2017-09-08 09:09] VITALS: Wt 95.1 kg
[2017-09-22 12:02] VITALS: BP 91/64
--- NOTE | 2017-09-22 17:48 | ONCOLOGY CONSULTATION ---
EVENT DATE: September 22, 2017 REFERRING PHYSICIAN Hospitalist REASON FOR CONSULTATION Evaluation and management of erythrocytosis. HEMATOLOGY HISTORY Patient is a 47-year-old male with history of tobacco and alcohol abuse and a history of coronary artery disease with myocardial infarction times two, first in 2010, second in 2017, with stent placed recently with his recent myocardial infarction. Patient was admitted to the hospital with chest tightness. Patient during his hospitalization was found to have erythrocytosis. His blood count on the August showed white count 11.2, hemoglobin 22.3, hematocrit 64.7, MCV was 108.5, and the platelet count 262,000. Patient was referred for further evaluation and management of his erythrocytosis. PAST MEDICAL HISTORY 1. Coronary artery disease, status post stent placement times two. 2. Alcohol abuse. 3. Tobacco abuse. PAST SURGICAL HISTORY Hernia repair. SOCIAL HISTORY Patient is single with no children. 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 He smokes 1-1/4 packs daily currently, but before he smoked about 2 packs a day for 30 years. He drinks daily a six-pack to a 12-pack of beer. He occasionally smokes marijuana. CURRENT MEDICATIONS 1. Lisinopril 10 mg daily. 2. Metoprolol 25 mg twice daily. 3. Atorvastatin 40 mg daily, two tablets. 4. Aspirin 81 mg daily. 5. Plavix 75 mg daily. ALLERGIES PENICILLIN, and the patient does not know the reaction. REVIEW OF SYSTEMS CONSTITUTIONAL: No appetite or weight change. No fever, chills, or sweating. No recent infection. HEENT: Ears: No tinnitus or hearing problem. Nose: No nasal discharge or epistaxis. Throat: No sore throat or mouth ulcers. Eyes: No diplopia or visual changes. RESPIRATORY: No shortness of breath. No cough, expectoration, or hemoptysis. CARDIOVASCULAR: No chest pain, orthopnea, or paroxysmal nocturnal dyspnea (PND) . No edema. No palpitations. GASTROINTESTINAL: No nausea or vomiting. No diarrhea or constipation. No change in bowel movements. No heartburn or swallowing difficulties. No abdominal pain. No jaundice. No hematemesis, melena, or rectal bleeding. GENITOURINARY: No hematuria or dysuria. MUSCULOSKELETAL: No pain in the muscles, joints, or bones. NEUROLOGICAL: No tingling or numbness in the hands or feet. No headaches or convulsions. HEMATOLOGIC/LYMPHATIC: No bleeding or easy bruising. No weakness or fatigue. No enlarged lymph nodes. SKIN: No skin rash or lumps. PSYCHIATRIC: No anxiety or depression. PHYSICAL EXAMINATION GENERAL: Looks stable. Well developed, well nourished, and in no acute distress. VITAL SIGNS: Blood pressure 91/64, pulse 91 per minute, respirations 16 per minute, temperature 97.3, pulse oximetry 90% on room air. HEENT: Head: Atraumatic. No sinus tenderness to palpation. Eyes: No icterus or conjunctivitis. Mouth and throat: No oral thrush or mucositis. NECK: Supple. No cervical or supraclavicular lymphadenopathy. LUNGS: Clear to auscultation and percussion bilaterally. HEART: Regular rate and rhythm. No gallops, murmurs, clicks, or rubs. ABDOMEN: Soft and lax. No tenderness. No hepatosplenomegaly. No masses. EXTREMITIES: No cyanosis, clubbing, or edema. LYMPHATICS: No peripheral lymphadenopathy. NEUROLOGICAL: Conscious, alert, and oriented times three. No focal motor or sensory deficits. PSYCHIATRIC: Mood and affect appear normal. SKIN: No skin rash, bruise, or purpuric eruption. ASSESSMENT Erythrocytosis, could be primary due to polycythemia vera or secondary due to his smoking history. To differentiate between the two conditions, I am planning to check the erythropoietin level, which will be low in polycythemia vera and high or normal in secondary erythrocytosis. I am planning also to check JAK2 mutation analysis which will be positive in 95% of patients with polycythemia vera and negative in secondary erythrocytosis. I am planning to do a phlebotomy currently if his hematocrit is above 50% until we know if the patient has primary or secondary erythrocytosis. If the patient has secondary erythrocytosis, the target for phlebotomy will be a hematocrit above 55%, but if he proves to have polycythemia vera, then the target for phlebotomy will be hematocrit above 45%. I explained that to the patient. He is agreeable with the plan of management. PLAN 1. CBC. 2. JAK2 mutation analysis. 3. Erythropoietin level. 4. Phlebotomize 500 mL of blood if hematocrit above 50%. 5. Patient to return in one week for further evaluation and management. 6. Patient to contact us for any new concerns or complaints. [facility]
[~2017-12-15 13:26] MED LIST changes: -REGADENOSON 0.4 MG/5 ML SYR ONE
[2017-12-15 13:54] LABS: PLATELET COUNT, AUTOMATED 207 K/uL (150-450)
[2017-12-15 14:57] VITALS: BP 150/101
== END 2017-12-20 ==
LOC: SPU 13:26
PROVIDERS: ATTEND Internal Medicine Hematology
DX: D75.1 Secondary polycythemia (principal); I25.10 Atherosclerotic heart disease of native coronary artery without angina pectoris; I25.2 Old myocardial infarction; Z95.0 Presence of cardiac pacemaker; F17.201 Nicotine dependence, unspecified, in remission
CPT/HCPCS: 85025; 99195; 99203

== ENCOUNTER 2018-06-09 08:00 | Outpatient (RCR) | payer SELFPAY ==
[2017-09-08 09:09] VITALS: Wt 97.4 kg
[2018-03-15 13:21] VITALS: BP 117/73
[2018-03-15 13:28] LABS: PLATELET COUNT, AUTOMATED 210 K/uL (150-450)
[2018-03-15 14:23] VITALS: BP 110/72
[2018-03-15] MEDS: LIDOCAINE/SOD BICARB 8.4% SYR ID PRN (14:37)
[2018-03-24 13:39] VITALS: BP 114/77
--- NOTE | 2018-03-24 19:29 | [facility] ONCOLOGY NOTE ---
EVENT DATE: March 24, 2018 DIAGNOSIS Secondary erythrocytosis. CHIEF COMPLAINT Patient is here today for followup of his erythrocytosis. HEMATOLOGY HISTORY Patient is a 47-year-old male with history of tobacco and alcohol abuse and a history of coronary artery disease with myocardial infarction times two, first in 2010, second in 2018, with stent placed recently with his recent myocardial infarction. Patient was admitted to the hospital with chest tightness. Patient during his hospitalization was found to have erythrocytosis. His blood count on the August showed white count 11.2, hemoglobin 22.3, hematocrit 64.7, MCV was 108.5, and the platelet count 262,000. Patient was referred for further evaluation and management of his erythrocytosis. JAK2 mutation was negative, and erythropoietin level was normal at 22. HISTORY OF PRESENT ILLNESS This patient is here for followup of his erythrocytosis. He is doing fine currently, and he is totally asymptomatic. He had a high hematocrit lately last week, and the patient had a phlebotomy at that time. PAST MEDICAL HISTORY 1. Coronary artery disease, status post stent placement times two. 2. Alcohol abuse. 3. Tobacco abuse. PAST SURGICAL HISTORY Hernia repair. SOCIAL HISTORY Patient is single with no children. 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 He smokes 1-1/4 packs daily currently, but before he smoked about 2 packs a day for 30 years. He drinks daily a six-pack to a 12-pack of beer. He occasionally smokes marijuana. CURRENT MEDICATIONS 1. Lisinopril 10 mg daily. 2. Metoprolol 25 mg twice daily. 3. Atorvastatin 40 mg daily, two tablets. 4. Aspirin 81 mg daily. 5. Plavix 75 mg daily. ALLERGIES PENICILLIN, and the patient does not know the reaction. REVIEW OF SYSTEMS CONSTITUTIONAL: No appetite or weight change. No fever, chills, or sweating. No recent infection. HEENT: Ears: No tinnitus or hearing problem. Nose: No nasal discharge or epistaxis. Throat: No sore throat or mouth ulcers. Eyes: No diplopia or visual changes. RESPIRATORY: No shortness of breath. No cough, expectoration, or hemoptysis. CARDIOVASCULAR: No chest pain, orthopnea, or paroxysmal nocturnal dyspnea (PND). No edema. No palpitations. GASTROINTESTINAL: No nausea or vomiting. No diarrhea or constipation. No change in bowel movements. No heartburn or swallowing difficulties. No abdominal pain. No jaundice. No hematemesis, melena, or rectal bleeding. GENITOURINARY: No hematuria or dysuria. MUSCULOSKELETAL: No pain in the muscles, joints, or bones. NEUROLOGICAL: No tingling or numbness in the hands or feet. No headaches or convulsions. HEMATOLOGIC/LYMPHATIC: No bleeding or easy bruising. No weakness or fatigue. No enlarged lymph nodes. SKIN: No skin rash or lumps. PSYCHIATRIC: No anxiety or depression. PHYSICAL EXAMINATION GENERAL: Looks stable. Well developed, well nourished, and in no acute distress. VITAL SIGNS: Blood pressure 114/77, pulse 87 per minute, respirations 16 per minute, temperature 99, pulse ox 91% on room air. HEENT: Head: Atraumatic. No sinus tenderness to palpation. Eyes: No icterus or conjunctivitis. Mouth and throat: No oral thrush or mucositis. NECK: Supple. No cervical or supraclavicular lymphadenopathy. LUNGS: Clear to auscultation and percussion bilaterally. HEART: Regular rate and rhythm. No gallops, murmurs, clicks, or rubs. ABDOMEN: Soft and lax. No tenderness. No hepatosplenomegaly. No masses. EXTREMITIES: No cyanosis, clubbing, or edema. LYMPHATICS: No peripheral lymphadenopathy. NEUROLOGICAL: Conscious, alert, and oriented times three. No focal motor or sensory deficits. PSYCHIATRIC: Mood and affect appear normal. SKIN: No skin rash, bruise, or purpuric eruption. DIAGNOSTIC DATA JAK2 mutation for V617F mutation came back negative. Erythropoietin level is normal at 22. CBC showed white count 8.5, hemoglobin 22.1, hematocrit 66.9, platelets 210,000, MCV 108.7. ASSESSMENT 1. Erythrocytosis, most probably secondary in nature given that the JAK2 mutation came back negative, and erythropoietin level is normal at 22. His current hematocrit is 66.9, and the patient received a phlebotomy last week. I am planning to check his CBC every two weeks, and I will phlebotomize 500 mL of blood if hematocrit above 50%. I am planning to see him again in one month with CBC and a chem panel. 2. Macrocytosis with MCV 108.7, most probably due to alcohol intake. Patient was advised to decrease his alcohol intake. PLAN 1. CBC q.2 weeks. 2. Phlebotomize 500 mL blood if hematocrit above 50%. 3. Patient to return in one month with CBC. 4. Patient to contact us for any new concerns or complaints. [facility]
[2018-03-31 12:17] VITALS: BP 114/82
[2018-03-31 12:34] LABS: PLATELET COUNT, AUTOMATED 225 K/uL (150-450)
[2018-03-31] MEDS: LIDOCAINE/SOD BICARB 8.4% SYR ID PRN (13:00)
[2018-03-31 13:01] VITALS: BP 128/90
[2018-04-25 15:33] LABS: PLATELET COUNT, AUTOMATED 220 K/uL (150-450)
[2018-04-25 15:38] VITALS: BP 125/90
[2018-04-25] MEDS: LIDOCAINE/SOD BICARB 8.4% SYR ID PRN (15:45)
[2018-04-25 16:05] VITALS: BP 138/83
--- NOTE | 2018-04-26 10:17 | ONCOLOGY FOLLOW UP NOTE ---
EVENT DATE: April 25, 2018 DIAGNOSIS Secondary erythrocytosis. CHIEF COMPLAINT Patient is here today for followup of his erythrocytosis. HEMATOLOGY HISTORY Patient is a 47-year-old male with history of tobacco and alcohol abuse and a history of coronary artery disease with myocardial infarction times two, first in 2010, second in 2017, with stent placed recently with his recent myocardial infarction. Patient was admitted to the hospital with chest tightness. During his hospitalization he was found to have erythrocytosis. His blood count on September 07, 2017 showed white count 11.2, hemoglobin 22.3, hematocrit 64.7, MCV was 108.5, and the platelet count 262,000. Patient was referred for further evaluation and management of his erythrocytosis. JAK2 mutation was negative, and erythropoietin level was normal at 22. HISTORY OF PRESENT ILLNESS This patient is here for followup of his erythrocytosis. He is doing fine currently and he is totally asymptomatic. He missed his appointment last Tuesday but is here today for repeat labs and possible phlebotomy. His most recent hematocrit on March 31, 2018 was down to 61.8%. Patient tells me he continues to feel well. He does have some vasomotor symptoms but tells me that this has been ongoing since having his MN. PAST MEDICAL HISTORY 1. Coronary artery disease, status post stent placement times two. 2. Alcohol abuse. 3. Tobacco abuse. PAST SURGICAL HISTORY Hernia repair. SOCIAL HISTORY Patient is single with no children. 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 He smokes 1-1/4 packs daily currently, but before he smoked about 2 packs a day for 30 years. He drinks daily a six-pack to a 12-pack of beer. He occasionally smokes marijuana. CURRENT MEDICATIONS 1. Lisinopril 10 mg daily. 2. Metoprolol 25 mg twice daily. 3. Atorvastatin 40 mg daily, two tablets. 4. Aspirin 81 mg daily. 5. Plavix 75 mg daily. ALLERGIES PENICILLIN, and the patient does not know the reaction. REVIEW OF SYSTEMS A 12-point review of systems is performed and is negative other than stated above. PHYSICAL EXAMINATION VITAL SIGNS: Temperature 97.8 degree Fahrenheit, BP 125/90, P 80, R 16, oxygen saturation 94% on room air. GENERAL: This is a pleasant, well-developed, well-nourished appearing gentleman who is in no acute distress. HEAD: Atraumatic. Normocephalic. EYES: Sclerae anicteric. NECK: Supple. No lymphadenopathy. No JVD. LUNGS: Clear breath sounds to auscultation bilaterally. Chest expansion is symmetrical. No shortness of breath on examination. CARDIOVASCULAR: Regular rate and rhythm. No ectopy. NEUROLOGICAL: Grossly nonfocal. Patient is awake, alert and oriented x3. DERM: Patient has some mild facial redness but otherwise cursory examination does not reveal any abnormal skin lesions or rash. No purpura. LABORATORY CBC today: WBC 9.6, ANC 6.4, hemoglobin 20.7, hematocrit 60.6%, platelets 220,000. IMPRESSION AND PLAN This is a pleasant 47-year old gentleman with a history of tobacco and alcohol abuse and a history of coronary artery disease with myocardial infarction x2, first in 2010, followed by a second in 2018 with stent placement recently with his recent myocardial infarction. During hospitalization, he was found to have erythrocytosis. He is JAK2 negative and has had normal erythropoietin levels. We have performed therapeutic phlebotomy approximately every two weeks. 1. Erythrocytosis, most likely secondary in nature given that the JAK2 mutation is negative and erythropoietin level is normal. Current hematocrit based on today's CBC is still elevated, although down to 60.6%. 2. Patient will proceed with therapeutic phlebotomy 500 mL X 1 today. 3. We will continue to phlebotomize with one unit/ 500 mL of blood if hematocrit is above 50%. 4. Patient will continue with CBC check every two weeks. 5. Patient will return to clinic in two weeks for CBC and possible therapeutic phlebotomy. 6. Patient will return to clinic in four weeks for followup with Berenice GUNTER
--- NOTE | 2018-05-16 08:20 | NUR ---
Pt expressed difficulty with affording his next supply of medications. SW contacted [facility] on his behalf and they indicated they could help him with a utility bill so that he could afford his medications himself. ALEJANDRA attempted to contact the pt three times about this information however was unable to leave a voicemail. ALEJANDRA placed a letter in the mail with instructions on how to apply for the [email or web address] application.
--- NOTE | 2018-05-26 11:11 | NUR ---
SW re-faxed the provider consent for NRT per the pt's request to the [employer] program. Once a confirmation is received, ALEJANDRA will forward this to the pt.
--- NOTE | 2018-05-26 15:11 | NUR ---
SW faxed the requested document to [place] [employer] per pt's request.
--- NOTE | 2018-05-31 08:38 | NUR ---
ALEJANDRA rec'd a fax indicating the patient was approved for assistance for patches through [employer].
[~2018-06-09 08:00] MED LIST changes: +DEXTROSE 5%(*) 100 ML BAG 100 ML IVPB PRN; +NS(*) 0.9% 100 ML BAG 100 ML IVPB PRN
[2018-06-09 08:14] VITALS: BP 141/94
[2018-06-09 08:34] LABS: PLATELET COUNT, AUTOMATED 232 K/uL (150-450)
[2018-06-09 08:54] VITALS: BP 131/85
== END 2018-06-12 ==
LOC: SPU 08:00
PROVIDERS: ATTEND Internal Medicine Hematology
DX: D75.1 Secondary polycythemia (principal); I25.10 Atherosclerotic heart disease of native coronary artery without angina pectoris; I25.2 Old myocardial infarction; Z95.5 Presence of coronary angioplasty implant and graft; F17.210 Nicotine dependence, cigarettes, uncomplicated; Z79.82 Long term (current) use of aspirin; Z79.899 Other long term (current) drug therapy
CPT/HCPCS: 36415; 81270; 81403; 82668; 85025; 99195; 99212

== ENCOUNTER → 2018-08-04 | Outpatient (CLI) | payer SELFPAY ==
[2017-09-08 09:09] VITALS: BMI 30.3
[~2018-08-04] MED LIST changes: -DEXTROSE 5%(*) 100 ML BAG 100 ML IVPB PRN; -NS(*) 0.9% 100 ML BAG 100 ML IVPB PRN
[2018-08-04 11:56] LABS: PLATELET COUNT, AUTOMATED 224 K/uL (150-450)
[2018-08-04 13:20] LABS: LDL CHOLESTEROL 141 mg/dl
== END ==
LOC: LAB 11:30
PROVIDERS: ATTEND Internal Medicine
DX: E78.5 Hyperlipidemia, unspecified (principal); I25.10 Atherosclerotic heart disease of native coronary artery without angina pectoris; I10 Essential (primary) hypertension; D75.1 Secondary polycythemia; Z72.0 Tobacco use
CPT/HCPCS: 36415; 81001; 82040; 82247; 82310; 82374; 82435; 82465; 82565; 82728; 82947; 83540; 83550; 83718; 84075; 84132; 84155; 84295; 84443; 84450; 84460; 84478; 84520; 85025

== ENCOUNTER 2018-08-05 11:02 | Emergency (ER) | payer SELFPAY ==
[2017-09-08 09:09] VITALS: Wt 100.4 kg
--- NOTE | 2018-08-05 11:05 | ER Report ---
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 He was recently seen for a new patient visit with primary care provider 2 days ago and was noted to have low oxygen. He states that he has had low oxygen since his [place] and 2 stents from one year ago. He states that he has not wanted to come to a doctor but didn't come to see one 2 days ago. He states that all he wants is an inhaler. He states that he was given a the past with good relief. He does not feel short of breath he does have a mild dry cough. He denies any chest pain. He states that he does not want any workup other than just getting an inhaler. He was noted to be 87% on room air here. Patient was placed on 2 L of oxygen nasal cannula. REVIEW OF SYSTEMS: Constitutional: No fever, no chills. Eyes: No discharge. ENT: No sore throat. Cardiovascular: No chest pain, no palpitations. Respiratory: See history of present illness. Gastrointestinal: No abdominal pain, no vomiting. Genitourinary: No hematuria. Musculoskeletal: No back pain. Skin: No rashes. Neurological: No headache. Allergies: Coded Allergies: Penicillins (Verified Allergy, Unknown, UNKNOWN, 08/05/18) Home Meds Reported Medications Lisinopril (LISINOPRIL) 10 Mg Tablet, 10 MG PO QDAY, TAB 09/07/17 Metoprolol Tartrate (METOPROLOL TARTRATE) 25 Mg Tablet, 25 MG PO BID, TAB 09/07/17 Atorvastatin Calcium (LIPITOR) 40 Mg Tablet, 2 TAB PO QDAY, TAB 09/07/17 Aspirin (Children's Aspirin) 81 Mg Tab.chew 09/07/17 Clopidogrel Bisulfate (PLAVIX) 75 Mg Tablet, 1 TAB PO QDAY, TAB 09/07/17 Reviewed Nurses Notes: Yes Old Medical Records Reviewed: Yes Hx Smoking: Yes Smoking Status: Current: Every Day Smoker Exposure to Second Hand Smoke?: No Hx Substance Use Disorder: No Hx Alcohol Use: Yes (daily) Constitutional Vital Sign - Last 24 Hours 08/05/18 08/05/18 08/05/18 08/05/18 11:05 11:26 11:26 11:32 Temp 97.3 Pulse 94 85 Resp 12 16 B/P (MAP) 138/89 Pulse Ox 87 94 92 O2 Delivery Room Air Nasal Cannula Nasal Cannula O2 Flow Rate 2.0 1.0 08/05/18 11:32 Pulse 91 Resp 16 Physical Exam General Appearance: The patient is alert, has no immediate need for airway protection and no signs of toxicity. Patient appears to be in no acute distress Eyes: Pupils equal and round no pallor or injection. ENT, Mouth: Mucous membranes are moist. Respiratory: Bilateral wheezing is present. No respiratory distress. Cardiovascular: Regular rate and rhythm. Gastrointestinal: Abdomen is soft and non tender, no masses, bowel sounds normal. Skin: Warm and dry, no rashes. Musculoskeletal: Neck is supple non tender. Extremities are nontender, nonswollen and have full range of motion. DIFFERENTIAL DIAGNOSIS: After history and physical exam differential diagnosis was considered for shortness of breath including but not limited to pulmonary infectious process, COPD, asthma, pulmonary embolus and congestive heart failure. Medical Decision Making ED Course/Re-evaluation ED Course Patient does not want any workup at this time. Will give him DuoNeb and prednisone. He likely does have undiagnosed COPD and possibly is having a mild exacerbation given his exam. Will for see how he responds to the DuoNeb and prednisone. 08/05/2018 11:58:57 am - Pt refusing any prednisone, further neb treatment, blood work, imaging. He just wants inhaler and spacer. Will prescribe this for him. Discussed that we cannot rule out other potential causes of hypoxia including PE, KS, etc. He also refuses home oxygen therapy. Discussed risk including resp failure and and he is comfortable with his decision of r efusing testing and treatment. He does have further testing scheduled. Decision to Disposition Date: Aug 05, 2018 Decision to Disposition Time: 12:01 Depart Departure Latest Vital Signs Vital Signs Date Time Temp Pulse Resp B/P (MAP) Pulse Ox O2 Delivery O2 Flow Rate FiO2 08/05/18 11:32 91 16 08/05/18 11:32 92 Nasal Cannula 1.0 08/05/18 11:05 97.3 138/89 Impression: Primary Impression: COPD (chronic obstructive pulmonary disease) Additional Impression: Hypoxia Condition: Improved Disposition: HOME OR SELF-CARE Referrals: LICO BROWN MD (PCP) Patient Instructions: COPD (Chronic Obstructive Pulmonary Disease) (ED), Hypoxia (ED) Additional Instructions: Stay well-hydrated. Follow-up with primary care provider in 2-3 days. If having any worsening concerning symptoms may return to emergency department. Problem Qualifiers Primary Impression: COPD (chronic obstructive pulmonary disease) COPD type: unspecified COPD Qualified Codes: J44.9 - Chronic obstructive pulmonary disease, unspecified ELLIS ENCARNACION PA-C Aug 05, 2018 11:05
[2018-08-05] MEDS ORDERED: ALBUTEROL/IPRATROPIUM 3 ML NEB NEB ONE (11:15)
[2018-08-05] MEDS ORDERED: predniSONE 20 MG TAB PO ONE (11:15)
[2018-08-05 11:30] VITALS: BP 113/61
[2018-08-05] MEDS ORDERED: ALBUTEROL 8 GM INHALER INH ONE (11:55)
== END 2018-08-05 12:11 | disposition home or self-care (01) ==
LOC: ER 11:12
DX: J44.9 Chronic obstructive pulmonary disease, unspecified (principal); R09.02 Hypoxemia
CPT/HCPCS: 94640; 99283; J7620

== ENCOUNTER → 2018-08-05 | Outpatient (REF) | payer SELFPAY ==
[2017-09-08 09:09] VITALS: BMI 30.3
== END ==
LOC: ZZSENDIN 11:03
PROVIDERS: ATTEND Internal Medicine
DX: I10 Essential (primary) hypertension (principal); E78.49 Other hyperlipidemia; D75.1 Secondary polycythemia

== ENCOUNTER → 2018-08-11 | Outpatient (CLI) | payer SELFPAY ==
[2017-09-08 09:09] VITALS: BMI 30.3
== END ==
LOC: RESP 01:55
PROVIDERS: ATTEND Internal Medicine
DX: Z02.9 Encounter for administrative examinations, unspecified (principal)

== ENCOUNTER → 2018-08-18 | Outpatient (CLI) | payer SELFPAY ==
[2017-09-08 09:09] VITALS: BMI 30.3
== END ==
LOC: RESP 00:42
PROVIDERS: ATTEND Internal Medicine
DX: D75.1 Secondary polycythemia (principal); Z72.0 Tobacco use
CPT/HCPCS: 94060; 94726; 94729

== ENCOUNTER → 2018-09-29 | Outpatient (CLI) | payer SELFPAY ==
[2017-09-08 09:09] VITALS: BMI 30.3
[~2018-09-29] MED LIST changes: +ALBU8.5H IH; +ATOR-1 PO; +BUDE10.2 INH; +LEVO50TA86 PO
--- NOTE | 2018-09-29 11:56 | RADIOLOGY IMAGING REPORT ---
FACILITY: [facility] - [place], [place] PATIENT NAME: Johnson Tracy : 1970 MR: [id number] V: [id number] EXAM DATE: ORDERING PHYSICIAN: LICO BROWN TECHNOLOGIST: Location: [facility] Patient: Johnson Tracy : 1970 Visit/Account:[id number] Date of Sevice: 09/29/2018 Exam type: CHEST PA LAT History: tobacco use, cough Comparison: September 07, 2017 Findings: The lungs are free of acute effusions, infiltrates or edema. There is mild flattening the hemidiaphr agms which can be seen with hyperinflation cardiac silhouette is normal in size. There are mild spon dylotic changes of the thoracic spine. IMPRESSION: 1. No acute cardiopulmonary process is seen Report Dictated By: Leslie Sevilla MD at 09/29/2018 11:25 AM Report E-Signed By: Leslie Sevilla MD at 09/29/2018 11:48 AM WSN:[id number]
== END ==
LOC: LAB 10:14
PROVIDERS: ATTEND Internal Medicine
DX: I10 Essential (primary) hypertension (principal); I25.10 Atherosclerotic heart disease of native coronary artery without angina pectoris; E78.5 Hyperlipidemia, unspecified; D75.1 Secondary polycythemia; Z72.0 Tobacco use
CPT/HCPCS: 71046

== ENCOUNTER → 2018-09-29 | Outpatient (CLI) | payer SELFPAY ==
[2017-09-08 09:09] VITALS: BMI 30.3
== END ==
LOC: SPU 11:18
PROVIDERS: ATTEND Internal Medicine
DX: I25.10 Atherosclerotic heart disease of native coronary artery without angina pectoris (principal); E78.5 Hyperlipidemia, unspecified
CPT/HCPCS: 36415